=== PATIENT | female | born 2000 | race Caucasian/White ===

== ENCOUNTER 2020-04-28 07:44 | Day surgery (SDC) | payer OTHER ==
[2020-04-28] MEDS ORDERED: LIDOCAINE HCL/PF 2% SDV 5ML VIAL ONE (10:29)
== END 2020-04-28 11:40 | disposition home or self-care (01) ==
LOC: FECT 07:44
PROVIDERS: ATTEND Psychiatry & Neurology Psychiatry
PROC: GZB4ZZZ Other Electroconvulsive Therapy (ICD-10-PCS; principal; 2020-04-28 09:30)
DX: F32.9 Major depressive disorder, single episode, unspecified (principal)
CPT/HCPCS: 84703; 90870; 93005; 94760

== ENCOUNTER 2020-06-02 07:26 | Day surgery (SDC) | payer OTHER ==
[2020-06-02 08:20] VITALS: BMI 34.7
[2020-06-02 12:51] VITALS: TEMP 99.3
[2020-06-02 12:53] VITALS: BP 112/64; PULSE 89
== END 2020-06-02 11:00 | disposition home or self-care (01) ==
LOC: FECT 07:26
PROVIDERS: ATTEND Psychiatry & Neurology Psychiatry
PROC: GZB4ZZZ Other Electroconvulsive Therapy (ICD-10-PCS; principal; 2020-06-02 10:00)
DX: F32.9 Major depressive disorder, single episode, unspecified (principal)
CPT/HCPCS: 81025; 90870; 94760; C9803; U0003

== ENCOUNTER 2020-06-09 07:24 | Day surgery (SDC) | payer OTHER ==
[2020-05-06 13:16] VITALS: BMI 33.8
[2020-06-09 10:30] VITALS: TEMP 99.7
[2020-06-09 10:35] VITALS: BP 110/71; PULSE 104
== END 2020-06-09 10:40 | disposition home or self-care (01) ==
LOC: FECT 07:24
PROVIDERS: ATTEND Psychiatry & Neurology Psychiatry
PROC: GZB4ZZZ Other Electroconvulsive Therapy (ICD-10-PCS; principal; 2020-06-09 09:30)
DX: F32.9 Major depressive disorder, single episode, unspecified (principal)
CPT/HCPCS: 84703; 90870; 94760; C9803; U0003

== ENCOUNTER 2020-06-12 07:30 | Day surgery (SDC) | payer OTHER ==
[2020-06-12 08:07] VITALS: BMI 33.8
[2020-06-12 10:48] VITALS: TEMP 99.3
[2020-06-12 10:49] VITALS: BP 116/66; PULSE 102
== END 2020-06-12 10:45 | disposition home or self-care (01) ==
LOC: FECT 07:30
PROVIDERS: ATTEND Psychiatry & Neurology Psychiatry
PROC: GZB4ZZZ Other Electroconvulsive Therapy (ICD-10-PCS; principal; 2020-06-12 08:30)
DX: F32.9 Major depressive disorder, single episode, unspecified (principal)
CPT/HCPCS: 90870; 94760

== ENCOUNTER 2020-06-13 06:40 | Day surgery (SDC) | payer OTHER ==
[2020-06-13 07:35] VITALS: BMI 33.8
[2020-06-13 09:22] VITALS: BP 133/76; PULSE 91; TEMP 99.7
== END 2020-06-13 09:20 | disposition home or self-care (01) ==
LOC: FECT 06:40
PROVIDERS: ATTEND Psychiatry & Neurology Psychiatry
PROC: GZB4ZZZ Other Electroconvulsive Therapy (ICD-10-PCS; principal; 2020-06-13 08:00)
DX: F32.9 Major depressive disorder, single episode, unspecified (principal)
CPT/HCPCS: 81025; 90870; 94760; C9803; U0003

== ENCOUNTER 2020-06-16 08:21 | Day surgery (SDC) | payer OTHER ==
[2020-06-16 08:49] VITALS: BMI 33.8
[2020-06-16] MEDS ORDERED: ACETAMINOPHEN 500 MG TABLET (FP) PO PRN (10:20)
[2020-06-16] MEDS ORDERED: PROMETHAZINE HCL 25 MG/1 ML VIAL IVPUSH PRN (10:20)
[2020-06-16] MEDS ORDERED: LACTATED RINGERS SOLUTION 1,000 ML IV SCH (10:30)
[2020-06-16 10:59] VITALS: TEMP 98.2
[2020-06-16 11:03] VITALS: BP 133/73; PULSE 96
== END 2020-06-16 11:05 | disposition home or self-care (01) ==
LOC: FECT 08:21
PROVIDERS: ATTEND Psychiatry & Neurology Psychiatry
PROC: GZB4ZZZ Other Electroconvulsive Therapy (ICD-10-PCS; principal; 2020-06-16 10:30)
DX: F32.9 Major depressive disorder, single episode, unspecified (principal)
CPT/HCPCS: 90870; 94760; C9803; U0003

== ENCOUNTER 2020-06-19 05:52 | Day surgery (SDC) | payer OTHER ==
[2020-05-16 10:44] VITALS: BMI 33.8
[2020-06-19] MEDS ORDERED: PROPOFOL 20 ML ONE (09:19)
[2020-06-19 10:31] VITALS: BP 124/79; PULSE 102; TEMP 99
== END 2020-06-19 10:30 | disposition home or self-care (01) ==
LOC: FECT 05:52
PROVIDERS: ATTEND Psychiatry & Neurology Psychiatry
PROC: GZB4ZZZ Other Electroconvulsive Therapy (ICD-10-PCS; principal; 2020-06-19 09:00)
DX: F32.9 Major depressive disorder, single episode, unspecified (principal)
CPT/HCPCS: 81025; 90870; 94760

== ENCOUNTER 2020-06-20 06:17 | Day surgery (SDC) | payer OTHER ==
[2020-04-28 13:20] VITALS: BMI 33.8
[2020-06-20 07:00] VITALS: TEMP 98.4
[2020-06-20] MEDS ORDERED: KETOROLAC TROMETHAMINE 30 MG/1 ML VIAL ONE (08:13)
[2020-06-20] MEDS ORDERED: PROPOFOL 20 ML ONE (08:14)
[2020-06-20 08:55] VITALS: PULSE 98
[2020-06-20 09:33] VITALS: BP 121/77
[2020-06-21 13:08] LABS: SARS-CoV-2 NAA Not Detected (Not Detected)
== END 2020-06-20 09:25 | disposition home or self-care (01) ==
LOC: FECT 06:17
PROVIDERS: ATTEND Psychiatry & Neurology Psychiatry
PROC: GZB4ZZZ Other Electroconvulsive Therapy (ICD-10-PCS; principal; 2020-06-20 07:30)
DX: F32.9 Major depressive disorder, single episode, unspecified (principal)
CPT/HCPCS: 90870; 94760; C9803; U0003; U0005

== ENCOUNTER 2020-06-23 06:33 | Day surgery (SDC) | payer OTHER ==
[2020-05-06 13:12] VITALS: BMI 33.8
[2020-06-23 09:31] VITALS: TEMP 98.9
[2020-06-23 10:16] VITALS: BP 118/68; PULSE 98
[2020-06-24 10:09] LABS: SARS-CoV-2 NAA Not Detected (Not Detected)
== END 2020-06-23 10:19 | disposition home or self-care (01) ==
LOC: FECT 06:33
PROVIDERS: ATTEND Psychiatry & Neurology Psychiatry
PROC: GZB4ZZZ Other Electroconvulsive Therapy (ICD-10-PCS; principal; 2020-06-23 09:00)
DX: F32.9 Major depressive disorder, single episode, unspecified (principal)
CPT/HCPCS: 81025; 90870; 94760; C9803; U0003; U0005

== ENCOUNTER 2020-06-26 06:10 | Day surgery (SDC) | payer OTHER ==
[2020-05-01 11:55] VITALS: BMI 33.8
[2020-06-26 08:47] VITALS: TEMP 99.3
[2020-06-26 08:51] VITALS: BP 115/64; PULSE 92
[2020-06-27 12:07] LABS: SARS-CoV-2 NAA Not Detected (Not Detected)
== END 2020-06-26 09:00 | disposition home or self-care (01) ==
LOC: FECT 06:10
PROVIDERS: ATTEND Psychiatry & Neurology Psychiatry
PROC: GZB4ZZZ Other Electroconvulsive Therapy (ICD-10-PCS; principal; 2020-06-26 08:30)
DX: F32.9 Major depressive disorder, single episode, unspecified (principal)
CPT/HCPCS: 90870; 94760; C9803; U0003; U0005

== ENCOUNTER 2020-06-30 08:35 | Day surgery (SDC) | payer OTHER ==
[2020-06-03 17:09] VITALS: BMI 34.7
[2020-06-30] MEDS ORDERED: SUCCINYLCHOLINE CHLORIDE 200 MG/10 ML SYRINGE ONE (09:11)
[2020-06-30] MEDS ORDERED: PROPOFOL 20 ML ONE (09:11)
[2020-06-30] MEDS ORDERED: LIDOCAINE HCL/PF 2% SDV 5ML VIAL ONE (09:11)
[2020-06-30] MEDS ORDERED: ONDANSETRON 4 MG/2 ML VIAL ONE (09:11)
[2020-06-30] MEDS ORDERED: DEXAMETHASONE SOD PHOSPHATE 4 MG/1 ML VIAL ONE (09:11)
[2020-06-30 10:28] VITALS: TEMP 97.6
[2020-06-30 10:29] VITALS: BP 116/72; PULSE 96
[2020-06-30] MEDS ORDERED: ONDANSETRON 4 MG/2 ML VIAL IVPUSH PRN (11:04)
[2020-06-30] MEDS ORDERED: LACTATED RINGERS SOLUTION 1,000 ML IV SCH (11:15)
[2020-07-01 10:08] LABS: SARS-CoV-2 NAA Not Detected (Not Detected)
== END 2020-06-30 10:31 | disposition home or self-care (01) ==
LOC: FECT 08:35
PROVIDERS: ATTEND Psychiatry & Neurology Psychiatry
PROC: GZB4ZZZ Other Electroconvulsive Therapy (ICD-10-PCS; principal; 2020-06-30 10:00)
DX: F32.9 Major depressive disorder, single episode, unspecified (principal)
CPT/HCPCS: 81025; 90870; 94760; C9803; U0003; U0005

== ENCOUNTER 2020-07-04 05:49 | Day surgery (SDC) | payer OTHER ==
[2020-06-30 16:28] VITALS: BMI 34.7
[2020-07-04 09:32] VITALS: TEMP 97.5
[2020-07-04 10:16] VITALS: BP 108/65; PULSE 89
[2020-07-05 10:07] LABS: SARS-CoV-2 NAA Not Detected (Not Detected)
== END 2020-07-04 10:15 | disposition home or self-care (01) ==
LOC: FECT 05:49
PROVIDERS: ATTEND Psychiatry & Neurology Psychiatry
PROC: GZB4ZZZ Other Electroconvulsive Therapy (ICD-10-PCS; principal; 2020-07-04 07:30)
DX: F32.9 Major depressive disorder, single episode, unspecified (principal)
CPT/HCPCS: 81025; 90870; 94760; C9803; U0003; U0005

== ENCOUNTER 2020-07-07 06:38 | Day surgery (SDC) | payer OTHER ==
[2020-07-04 12:25] VITALS: BMI 34.7
[2020-07-07] MEDS ORDERED: LIDOCAINE HCL/PF 2% SDV 5ML VIAL ONE (08:09)
[2020-07-07 09:37] VITALS: BP 110/66; PULSE 89; TEMP 98.6
[2020-07-08 07:09] LABS: SARS-CoV-2 NAA Not Detected (Not Detected)
== END 2020-07-07 09:25 | disposition home or self-care (01) ==
LOC: FECT 06:38
PROVIDERS: ATTEND Psychiatry & Neurology Psychiatry
PROC: GZB4ZZZ Other Electroconvulsive Therapy (ICD-10-PCS; principal; 2020-07-07 08:30)
DX: F32.9 Major depressive disorder, single episode, unspecified (principal)
CPT/HCPCS: 90870; 94760; C9803; U0003; U0005

== ENCOUNTER 2020-07-11 06:10 | Day surgery (SDC) | payer OTHER ==
[2020-07-07 07:39] VITALS: BMI 34.7
[2020-07-11] MEDS ORDERED: ONDANSETRON 4 MG/2 ML VIAL ONE (07:26)
[2020-07-11] MEDS ORDERED: DEXAMETHASONE SOD PHOSPHATE 4 MG/1 ML VIAL ONE (07:26)
[2020-07-11] MEDS ORDERED: KETOROLAC TROMETHAMINE 30 MG/1 ML VIAL ONE (07:26)
[2020-07-11] MEDS ORDERED: PROPOFOL 20 ML ONE (07:26)
[2020-07-11] MEDS ORDERED: SUCCINYLCHOLINE CHLORIDE 200 MG/10 ML SYRINGE ONE (07:27)
[2020-07-11] MEDS ORDERED: KETAMINE HCL 500 MG/10 ML VIAL ONE (07:31)
[2020-07-11] MEDS ORDERED: ONDANSETRON 4 MG/2 ML VIAL IVPUSH PRN (07:53)
[2020-07-11] MEDS ORDERED: LACTATED RINGERS SOLUTION 1,000 ML IV SCH (08:00)
[2020-07-11 08:52] VITALS: TEMP 97.9
[2020-07-11 09:02] VITALS: BP 112/74; PULSE 90
[2020-07-12 10:12] LABS: SARS-CoV-2 NAA Not Detected (Not Detected)
== END 2020-07-11 09:05 | disposition home or self-care (01) ==
LOC: FECT 06:10
PROVIDERS: ATTEND Psychiatry & Neurology Psychiatry
PROC: GZB4ZZZ Other Electroconvulsive Therapy (ICD-10-PCS; principal; 2020-07-11 08:00)
DX: F32.9 Major depressive disorder, single episode, unspecified (principal)
CPT/HCPCS: 81025; 90870; 94760; C9803; U0003; U0005

== ENCOUNTER 2020-07-14 06:08 | Day surgery (SDC) | payer OTHER ==
[2020-07-14 06:44] VITALS: TEMP 98.4; BMI 34.7
[2020-07-14] MEDS ORDERED: KETAMINE HCL 500 MG/10 ML VIAL ONE (07:13)
[2020-07-14] MEDS ORDERED: SUCCINYLCHOLINE CHLORIDE 200 MG/10 ML SYRINGE ONE (07:20)
[2020-07-14] MEDS ORDERED: PROPOFOL 20 ML ONE (07:20)
[2020-07-14 08:29] VITALS: BP 110/83; PULSE 100
[2020-07-15 08:09] LABS: SARS-CoV-2 NAA Not Detected (Not Detected)
== END 2020-07-14 08:30 | disposition home or self-care (01) ==
LOC: FECT 06:08
PROVIDERS: ATTEND Psychiatry & Neurology Psychiatry
PROC: GZB4ZZZ Other Electroconvulsive Therapy (ICD-10-PCS; principal; 2020-07-14 09:00)
DX: F32.9 Major depressive disorder, single episode, unspecified (principal)
CPT/HCPCS: 90870; 94760; C9803; U0003; U0005

== ENCOUNTER 2020-07-18 06:01 | Day surgery (SDC) | payer OTHER ==
[2020-07-18] MEDS ORDERED: KETAMINE HCL 500 MG/10 ML VIAL ONE (07:11)
[2020-07-18] MEDS ORDERED: PROPOFOL 20 ML ONE (07:16)
[2020-07-18] MEDS ORDERED: SUCCINYLCHOLINE CHLORIDE 200 MG/10 ML SYRINGE ONE (07:16)
[2020-07-18 08:55] VITALS: BP 116/74; PULSE 100; TEMP 98.5; BMI 34.7
[2020-07-19 10:11] LABS: SARS-CoV-2 NAA Not Detected (Not Detected)
== END 2020-07-18 08:45 | disposition home or self-care (01) ==
LOC: FECT 06:01
PROVIDERS: ATTEND Psychiatry & Neurology Psychiatry
PROC: GZB4ZZZ Other Electroconvulsive Therapy (ICD-10-PCS; principal; 2020-07-18)
DX: Z53.8 Procedure and treatment not carried out for other reasons (principal)
CPT/HCPCS: C9803; U0003; U0005

== ENCOUNTER 2020-07-21 07:06 | Day surgery (SDC) | payer OTHER ==
[2020-07-18 15:52] VITALS: BMI 34.7
[2020-07-21] MEDS ORDERED: KETAMINE HCL 500 MG/10 ML VIAL ONE (08:47)
[2020-07-21 09:30] VITALS: TEMP 97.7
[2020-07-21 09:54] VITALS: BP 123/77; PULSE 108
[2020-07-22 12:07] LABS: SARS-CoV-2 NAA Not Detected (Not Detected)
== END 2020-07-21 10:00 | disposition home or self-care (01) ==
LOC: FECT 07:06
PROVIDERS: ATTEND Psychiatry & Neurology Psychiatry
PROC: GZB4ZZZ Other Electroconvulsive Therapy (ICD-10-PCS; principal; 2020-07-21 09:00)
DX: F32.9 Major depressive disorder, single episode, unspecified (principal)
CPT/HCPCS: 81025; 90870; 94760; C9803; U0003; U0005

== ENCOUNTER 2020-07-25 06:01 | Day surgery (SDC) | payer OTHER ==
[2020-07-21 10:01] VITALS: BMI 34.7
[2020-07-25] MEDS ORDERED: LIDOCAINE HCL/PF 2% SDV 5ML VIAL ONE (07:33)
[2020-07-25 08:19] VITALS: TEMP 98
[2020-07-25 08:41] VITALS: BP 120/76; PULSE 102
[2020-07-26 10:50] LABS: SARS-CoV-2 NAA Not Detected (Not Detected)
== END 2020-07-25 08:40 | disposition home or self-care (01) ==
LOC: FECT 06:01
PROVIDERS: ATTEND Psychiatry & Neurology Psychiatry
PROC: GZB4ZZZ Other Electroconvulsive Therapy (ICD-10-PCS; principal; 2020-07-25 08:00)
DX: F32.9 Major depressive disorder, single episode, unspecified (principal)
CPT/HCPCS: 81025; 90870; 94760; C9803; U0003; U0005